=== PATIENT | female | born 1970 | race Caucasian/White ===

== ENCOUNTER 2023-04-26 16:29 | Emergency (ER) | payer SELFPAY ==
[2023-04-26 16:45] VITALS: BP 137/102; O2SAT 99
--- NOTE | 2023-04-26 16:53 | ED Physician Documentation ---
History of Present Illness - Stated complaint Stated Complaint: FACIAL HIVES - Chief complaint Chief Complaint: Heent - History obtained from History obtained from: Patient - Additonal information Additional information: 52-year-old woman with history of stress-induced idiopathic urticaria has had urticaria for the last 2 weeks especially on the face. It has been not responsive to high doses of Benadryl and Zyrtec. She states that when this is happened in the past she does benefit from steroids. No shortness of breath or throat swelling. PD PAST MEDICAL HISTORY - Past Medical History Cardiovascular: Other Respiratory: Asthma, Sleep apnea, CPAP use Neuro: None Endocrine/Autoimmune: Type 2 diabetes GI: GERD [place] UNDERWRITER: None : Incontinence HEENT: None Psych: Depression, Anxiety Musculoskeletal: None Derm: None - Past Surgical History Past Surgical History: Yes General: Cholecystectomy /[facility] UNDERWRITER: Hysterectomy, Breast reduction, Other - Present Medications Home Medications: Ambulatory Orders Medication Instructions Recorded Confirmed Albuterol Sulf [Ventolin Hfa 1 - 2 puffs INH Q4HR PRN 03/20/23 03/20/23 Inhaler] Cetirizine HCl [Zyrtec] 40 mg PO DAILY 03/20/23 03/20/23 Cholecalciferol (Vitamin D3) 250 mcg PO DAILY 03/20/23 03/20/23 [D3-5000] Escitalopram Oxalate [Lexapro] 20 mg PO DAILY 03/20/23 03/20/23 Furosemide [Lasix] 40 mg PO DAILY 03/20/23 03/20/23 Mometasone/Formoterol [Dulera 200 2 puffs IH DAILY 03/20/23 03/20/23 Mcg-5 Mcg Inhaler] Montelukast [Singulair] 10 mg PO QPM 03/20/23 03/20/23 Spironolactone [Aldactone] 25 mg PO DAILY 03/20/23 03/20/23 Umeclidinium Brilliant [Incruse 62.5 mcg IH DAILY 03/20/23 03/20/23 Ellipta] traMADol [Ultram] 50 mg PO Q8H PRN #10 tablet 03/20/23 Doxepin [SINEquan] 10 mg PO TID PRN #30 cap 04/26/23 EPINEPHrine [Epinephrine] 0.3 mg IJ ONCE PRN #2 each 04/26/23 predniSONE [Deltasone] 40 mg PO DAILY 5 Days #10 tablet 04/26/23 - Allergies Allergies/Adverse Reactions: Allergies Allergy/AdvReac Type Severity Reaction Status Date / Time bupropion [From Wellbutrin] AdvReac Unknown Verified 04/26/23 16:42 celecoxib [From Celebrex] AdvReac Unknown Verified 04/26/23 16:42 rofecoxib [From Vioxx] AdvReac Unknown Verified 04/26/23 16:42 Sulfa (Sulfonamide AdvReac Unknown Verified 04/26/23 16:42 Antibiotics) - Social History Does the pt smoke?: No Smoking Status: Never smoker Does the pt drink ETOH?: No Does the pt have substance abuse?: No - Immunizations Immunizations are current?: Yes PD ED PE NORMAL - Vitals Vital signs reviewed: Yes - General General: Alert and oriented X 3, No acute distress - HEENT HEENT: Other (Modest facial urticaria with normal oropharynx without angioedema, normal phonation.) - Respiratory Respiratory: No respiratory distress, Clear bilaterally - Abdomen Abdomen: Non tender - Neuro Neuro: Alert and oriented X 3, Normal speech Results - Vitals Vitals: Vital Signs - 24 hr 04/26/23 16:30 Temperature 36.7 C Heart Rate 91 Respiratory 17 Rate Blood Pressure 137/102 H O2 Saturation 99 Oxygen O2 Source Room air PD Medical Decision Making - ED course ED course: 52-year-old woman with recurrent idiopathic urticaria presents with the same to her face requesting a prescription for steroids. She has never tried doxepin before and offered to trial that to spare her very high dosing of Benadryl (she has been taking 100 mg every 6 hours) Departure - Departure Disposition: 01 Home, Self Care Clinical Impression: Idiopathic urticaria Condition: Good Record reviewed to determine appropriate education?: Yes Instructions: ED Allergic Reaction General Other Prescriptions: predniSONE [Deltasone] 40 mg PO DAILY 5 Days #10 tablet EPINEPHrine [Epinephrine] 0.3 mg IJ ONCE PRN #2 each PRN Reason: Allergy Symptoms Doxepin [SINEquan] 10 mg PO TID PRN #30 cap PRN Reason: Itching Comments: I sent your prescriptions electronically to [facility] in [place]. Return if worse. Forms: PCP List
== END 2023-04-26 17:12 | disposition home or self-care (01) ==
LOC: ED 16:29
DX: L50.1 Idiopathic urticaria (principal)
CPT/HCPCS: 99282; 99283